=== PATIENT | male | born 2000 | race Caucasian/White ===

== ENCOUNTER 2019-06-12 09:46 | Emergency (ER) | payer OTHER ==
[~2019-06-12] VITALS: Ht 172.7 cm; Wt 76.7 kg
[2019-06-12 09:54] VITALS: BP 122/72; Ht 172.7 cm; Wt 76.7 kg
== END 2019-06-12 10:54 | disposition home or self-care (01) ==
LOC: EDBD 09:46 → ED 09:46
DX: S39.012A Strain of muscle, fascia and tendon of lower back, initial encounter (principal); X50.0XXA Overexertion from strenuous movement or load, initial encounter; Y93.89 Activity, other specified; Y92.89 Other specified places as the place of occurrence of the external cause; Y99.8 Other external cause status
CPT/HCPCS: J7030; Q0092